=== PATIENT | male | born 1975 | race Two or more races ===

== ENCOUNTER 2022-09-19 00:39 | Emergency (ER) | payer OTHER ==
[~2022-09-19] VITALS: Ht 167.6 cm; Wt 108.9 kg
[2022-09-19] MEDS ORDERED: TOPROL XL100 M1 PO (00:58)
[2022-09-19] MEDS ORDERED: ZESTRIL30 MG PO (00:59)
[2022-09-19] MEDS ORDERED: LEVOTHYROXINE25 MCG PO (00:59)
== END 2022-09-19 03:41 | disposition home or self-care (01) ==
LOC: ER 00:39
DX: L76.34 Postprocedural seroma of skin and subcutaneous tissue following other procedure (principal); Z88.6 Allergy status to analgesic agent